=== PATIENT | female | born 1940 | race Caucasian/White ===

== ENCOUNTER 2024-08-30 20:46 | Emergency (ER) | payer OTHER ==
[~2024-08-30] VITALS: Ht 167.6 cm; Wt 71.0 kg
[~2024-08-30 20:46] MED LIST: GABA100C MT
[2024-08-30 20:56] VITALS: O2SAT 98
[2024-08-31 00:15] VITALS: BP 129/85; PULSE 92; RESP 20; TEMP 36.94740; O2SAT 100
== END 2024-08-31 00:15 | disposition home or self-care (01) ==
LOC: ER 20:46
DX: S91.012A Laceration without foreign body, left ankle, initial encounter (principal); E11.9 Type 2 diabetes mellitus without complications; I10 Essential (primary) hypertension; X58.XXXA Exposure to other specified factors, initial encounter; Y93.89 Activity, other specified; Y92.89 Other specified places as the place of occurrence of the external cause; Y99.8 Other external cause status
CPT/HCPCS: 12001; 99283